=== PATIENT | male | born 1985 | race African-American/Black ===

== ENCOUNTER 2016-08-14 12:01 | Emergency (ER) | payer OTHER ==
[~2016-08-14] VITALS: Ht 182.9 cm; Wt 98.0 kg
[2016-08-14 12:51] LABS: BASOPHILS % (AUTO) 1 % (0-2); EOSINOPHILS # (AUTO) 0.6 10^3uL; EOSINOPHILS % (AUTO) 6 % (0-4); LYMPHOCYTES # (AUTO) 2.1 X10^3; MEAN CORPUSCULAR HEMOGLOBIN 28.9 PG (26.0-34.0); MEAN CORPUSCULAR HGB CONC 33.6 g/dL (31.0-37.0); MEAN CORPUSCULAR VOLUME 86 FL (80-100); MEAN PLATELET VOLUME 10.1 FL (6.0-9.5); MONOCYTES # (AUTO) 1.1 X10^3; MONOCYTES % (AUTO) 12 % (3-11); NEUTROPHILS % (AUTO) 57 % (51-67); PLATELET COUNT 307 10^3uL (150-450); WHITE BLOOD COUNT 8.82 10^3uL (4.0-11.0)
[2016-08-14 13:01] LABS: ALBUMIN 4.4 g/dL (3.4-5.0); ANION GAP 15.5 MEQ/L (3-15); CALCULATED IONIZED CALCIUM 3.8 mg/dL (3.8-4.6); TOTAL PROTEIN 8.2 g/dL (6.4-8.5)
[2016-08-14] MEDS ORDERED: ONDANSETRON 2 MG/ML (Z0FRAN) 2 ML VIAL IV ONE (13:25)
[2016-08-14 13:35] LABS: BILIRUBIN,URINE Negative (Negative); CLARITY,URINE Clear; COLOR,URINE Yellow; GLUCOSE, URINE (UA) Negative (Negative); LEUKOCYTE ESTERASE ,URINE Negative (Negative)
[2016-08-14 14:33] VITALS: BP 142/65
== END 2016-08-14 14:30 | disposition home or self-care (01) ==
LOC: EDUNIT# 12:01 → ED 12:04
DX: A08.4 Viral intestinal infection, unspecified (principal)
CPT/HCPCS: 36415; 80053; 81003; 85025; 96361; 96374; 99284; J2405; J7030; 99283

== ENCOUNTER → 2016-08-20 | Outpatient (CLI) | payer OTHER | LOC: RAD 10:28 | PROVIDERS: ATTEND Family Medicine | DX: R94.5 Abnormal results of liver function studies (principal) | CPT/HCPCS: 76705 ==